=== PATIENT | female | born 1955 | race Caucasian/White ===

== ENCOUNTER → 2018-05-23 14:46 | Outpatient (CLI) | payer BC, SELFPAY ==
--- NOTE | 2018-05-23 14:51 | BI_ITS ---
MAMMOGRAPHY - BILATERAL SCREENING 3-D RACHAEL SYNTHESIS REASON FOR EXAM: Female, 62 years old. Bilateral Screening 3-D tomosynthesis PERTINENT HISTORY: No significant family history. TECHNIQUE: 2-D mammograms and 3-D Rachael synthesis of the breast (s) were performed. CAD was performed. COMPARISON: None. FINDINGS: The breast composition is heterogeneously dense that can obscure small breast masses. Scattered benign calcifications are seen. No dense spiculated masses or suspicious microcalcifications are identified. No architectural distortion is identified. There is no skin thickening or retraction. There has been no significant change since the prior study. BI/SCREENING MAMM (CAD), BILAT IMPRESSION: No mammographic signs of malignancy. Routine yearly mammograms recommended. ASSESSMENT CATEGORY: BIRADS Category 2: Benign. A letter regarding these results will be sent to the patient by the facility within 30 days. FOLLOW UP RECOMMENDATION: Yearly follow up mammogram recommended. (A) Approximately 10% of breast cancers are not detected by mammography. A normal mammogram should not delay biopsy of a clinically suspicious abnormality. Electronically Signed: Tavares Oreilly MD at 15:41 EDT , Service support ,
== END ==
PROVIDERS: Family Provider Family Medicine; PCP Family Medicine; Visit Provider Family Medicine
DX: Z12.31 Encounter for screening mammogram for malignant neoplasm of breast (principal)
CPT/HCPCS: 77063; 77067

== ENCOUNTER → 2021-01-13 16:42 | Outpatient (CLI) | payer OTHER, SELFPAY ==
--- NOTE | 2021-01-13 17:15 | MRI_ITS ---
ACR Level 3 findings have been noted. An addendum which confirms receipt of the report will follow. STUDY: MRI UPPER EXTREMITY RIGHT HUMERUS WITHOUT CONTRAST REASON FOR EXAM: Right shoulder/mid humeral pain, limited range of motion, right shoulder injury 2 weeks ago. TECHNIQUE: Standardized fat and water weighted pulse sequences were obtained in all 3 orthogonal planes. COMPARISON: None. FINDINGS: Normal subcutis adipose space. There is no demonstrated solid, cystic, or lipomatous mass within the subcutaneous adipose space. Normal visualized muscles and fascia. There is mild tendinosis of the intracapsular long biceps tendon demonstrated on the MRI shoulder images obtained the same day without demonstrated tear of the long biceps tendon. The distal biceps tendon is not included in the [id number]. Normal visualized neurovascular bundles. Normal visualized humerus. There is thickening of the visualized right breast parenchyma (T1 axial images 18-21; inversion recovery coronal images 18-21), further evaluation with mammography should be considered. MRI/Upper Ext/No Jt/ wo IMPRESSION: Mild tendinosis of the long biceps tendon without demonstrated tear of the long biceps tendon. No demonstrated biceps muscle strain. Thickening of the visualized right breast parenchyma, further evaluation with mammography should be considered. Electronically Signed: Darron Lopez MD at 8:59 EDT Tel , Service support ,
--- NOTE | 2021-01-13 17:15 | MRI_ITS ---
STUDY: MRI RIGHT SHOULDER REASON FOR EXAM: Right shoulder/mid humeral pain, limited range of motion, right shoulder injury 2 weeks ago. TECHNIQUE: Standardized fat and water weighted pulse sequences were obtained in all 3 orthogonal planes. COMPARISON: None. FINDINGS: There is a full-thickness tear of the supraspinatus tendon extending into the anterior infraspinatus tendon retracted approximately 2.8 cm (T2 coronal images 7-13). Normal subscapularis tendon. Normal teres minor tendon. There is mild atrophy with mild partial fat replacement of the supraspinatus and infraspinatus muscles (T2 sagittal images 1-3). Normal subscapularis muscle. Normal teres minor muscle. There is a glenohumeral joint effusion with fluid extending into the bicipital tendon sheath. There is mild superior migration of the humeral head secondary to the retracted rotator cuff tear. There is a small cyst in the posterior aspect of the greater tuberosity. Normal biceps labral complex. There is mild tendinosis of the intracapsular long biceps tendon (T2 coronal images 13, 14) without focal discontinuity of the tendon. Normal labrum. Normal capsulo- ligamentous complex. There is acromioclavicular arthrosis with capsular thickening (T2 sagittal image 9). There is a Type II morphology (curved), with a neutral orientation. There is subacromial-subdeltoid bursal fluid. Normal visualized coracohumeral and coracoacromial ligaments. Normal deltoid muscle. Normal trapezius muscle. MRI/Upper Ext Joint Only(Routine) IMPRESSION: Full-thickness tear of the supraspinatus tendon extending into the anterior infraspinatus tendon. Mild atrophy of the supraspinatus and infraspinatus muscles. Mild tendinosis of the long biceps tendon without demonstrated tear of the long biceps tendon. Acromioclavicular arthrosis. Glenohumeral joint fluid communicating with the subacromial-subdeltoid bursa. Electronically Signed: Darron Lopez MD at 8:59 EDT Tel , Service support ,
== END ==
PROVIDERS: PCP Family Medicine; Referring Provider Family Medicine; Visit Provider Family Medicine
DX: S43.401A Unspecified sprain of right shoulder joint, initial encounter (principal)
CPT/HCPCS: 73218; 73221

== ENCOUNTER → 2021-01-26 08:49 | Outpatient (CLI) | payer MEDICARE, OTHER, SELFPAY ==
[2021-01-25 09:21] VITALS: BMI 28.4
--- NOTE | 2021-01-26 08:55 | BI_ITS ---
MAMMOGRAPHY - BILATERAL DIAGNOSTIC REASON FOR EXAM: Female, 65 years old. Thickening of right breast parenchyma on recent MRI of the right upper extremity. PERTINENT HISTORY: Non-contributory. TECHNIQUE: Digital bilateral breast david (3D mammographic acquisition) in the CC and MLO projections. 2-D mediolateral oblique (MLO) and craniocaudad (CC) views of both breasts were obtained. CAD: Full Field Digital Mammography with Computer Added Detection was performed. COMPARISON: Comparison is made with prior study dated 05/23/2018 and 09/12/2016. FINDINGS: Breast Composition: The breasts are heterogeneously dense, which may obscure small masses. There are no dominant masses or suspicious calcifications. No other significant abnormalities are identified. There has been no significant change since the prior study. BI/DIAG MAMM W/CAD, BILAT IMPRESSION: Stable bilateral diagnostic mammogram. With a history of a thickness of the right breast, correlation with ultrasound of the right breast is recommended. ASSESSMENT CATEGORY: BIRADS Category 0: Incomplete. Need additional imaging evaluation. A letter regarding these results will be sent to the patient by the facility within 30 days. Approximately 10% of breast cancers are not detected by mammography. A normal mammogram should not delay biopsy of a clinically suspicious abnormality. Electronically Signed: Vicente Márquez MD at 10:10 EDT , Service support ,
--- NOTE | 2021-01-26 10:00 | US_ITS ---
STUDY: ULTRASOUND BREAST - RIGHT REASON FOR EXAM: Female, 65 years old. Abnormal MRI scan. TECHNIQUE: Axial and longitudinal images of the RIGHT breast were performed with a high resolution ultrasound transducer. # OF IMAGES: 34 COMPARISON: Comparison is made with prior mammogram done earlier today. FINDINGS: RIGHT Breast: The inferior medial aspect of the right breast was examined by ultrasound. There is homogeneous fibroglandular tissue. Mildly dilated retroareolar ducts. US/Breast Limited Unilateral IMPRESSION: Mildly dilated retroareolar ducts. ASSESSMENT CATEGORY: BIRADS Category 2: Benign. A letter regarding these results will be sent to the patient by the facility within 30 days. Electronically Signed: Vicente Márquez MD at 14:14 EDT , Service support ,
== END ==
PROVIDERS: PCP Family Medicine; Referring Provider Family Medicine; Visit Provider Family Medicine
DX: R92.8 Other abnormal and inconclusive findings on diagnostic imaging of breast (principal)
CPT/HCPCS: 76642; 77062; 77066; G0279

== ENCOUNTER → 2021-10-07 17:42 | Outpatient (CLI) | payer MEDICARE, SELFPAY | PROVIDERS: PCP Family Medicine; Referring Provider Nurse Practitioner Family; Visit Provider Nurse Practitioner Family | DX: U07.1 COVID-19 (principal) | CPT/HCPCS: 87633; 87635; U0005; U0003 ==

== ENCOUNTER → 2023-09-22 | Outpatient (CLI) | payer MEDICARE, OTHER, SELFPAY ==
--- NOTE | 2023-09-22 16:58 | RAD_ITS ---
STUDY: X-RAY CHEST REASON FOR EXAM: Female, 67 years old. hiatal hernia, cough TECHNIQUE: Frontal and lateral views of the chest. COMPARISON: 11/04/2015. FINDINGS: The lungs are clear and expanded. There is no demonstrated pleural abnormality. Normal size heart. Normal mediastinum and cristo. Normal visualized pulmonary arteries. Normal visualized aortic arch and descending thoracic aorta. Normal visualized thoracic spine. Normal visualized ribs, clavicles, and shoulders. There is no demonstrated abnormality of the visualized soft tissue structures of the upper abdomen. RAD/Chest PA and Lateral IMPRESSION: Normal x-ray examination of the chest. Electronically Signed: Gilberto Landaverde MD at 22:13 EST ,
== END | disposition home or self-care (01) ==
PROVIDERS: PCP Family Medicine; Referring Provider Family Medicine; Visit Provider Family Medicine
DX: K44.9 Diaphragmatic hernia without obstruction or gangrene (principal); R05.9 Cough, unspecified
CPT/HCPCS: 71046

== ENCOUNTER → 2023-10-03 | Outpatient (CLI) | payer MEDICARE, OTHER, SELFPAY ==
--- NOTE | 2023-10-03 08:09 | RAD_ITS ---
STUDY: X-RAY - ESOPHAGUS (BARIUM SWALLOW) WITH FLUOROSCOPY REASON FOR EXAM: Female, 67 years old. Dysphagia 12 mm tablet only TECHNIQUE: 22 view(s) of the esophagus were obtained following swallowing of barium. FLUOROSCOPY TIME (if supplied): (43 seconds) minutes/seconds. 25.69 mGy COMPARISON: None. FINDINGS: There is no demonstrated esophageal foreign body. There is no demonstrated stricture or mucosal abnormality. Large hiatal hernia with gastroesophageal reflux. The patient ingested a 12 mm tablet of barium. The tablet is trapped within the hernia. There is atherosclerotic calcification of the aortic arch with tortuosity of the descending aorta. Normal visualized pulmonary parenchyma. Normal visualized osseous structures of the thorax. RAD/Esophagus Single Contrast IMPRESSION: Large hiatal hernia with gastroesophageal reflux. The ingested 12 mm tablet is trapped within the hernia. Electronically Signed: Vicente Márquez MD at 9:59 EST ,
== END | disposition home or self-care (01) ==
LOC: RAD 08:02
PROVIDERS: PCP Family Medicine; Referring Provider Family Medicine; Visit Provider Family Medicine
DX: R13.10 Dysphagia, unspecified (principal)
CPT/HCPCS: 74220

== ENCOUNTER 2023-12-04 06:29 | Day surgery (SDC) | payer MEDICARE, OTHER, SELFPAY ==
[2023-12-04] VITALS (8 sets, daily range): BP systolic 86–141; BP diastolic 51–119; PULSE 82–97; RESP 16–18; TEMP 36.3; O2SAT 91–98; BMI 31.6
--- NOTE | 2023-12-04 06:33 | HP.PCM_ITS ---
History and Physical Date of Admission: 12/04/23 Visit Reasons: HIATAL HERNIA Allergies adhesive Allergy (Mild, Verified 11/01/23 08:48) Rashcefaclor [From Ceclor] Allergy (Verified 01/25/21 09:37) Hives, Itchingcholestyramine Allergy (Verified 01/25/21 09:37) constipation, itching, nausea, vomitinglatex Allergy (Verified 01/25/21 09:37) Rash, blisters, itchingPenicillins Allergy (Verified 01/25/21 09:37) Fainting, Hives, Itchingpregabalin [From Lyrica] Allergy (Verified 01/25/21 09:37) Nauseasulfamethoxazole [From Bactrim] Allergy (Verified 01/25/21 09:37) Dizziness, itching, rashtrimethoprim [From Bactrim] Allergy (Verified 01/25/21 09:37) Dizziness, itching, rashacetaminophen [From Vicodin] Adverse Reaction (Verified 01/25/21 09:37) Disoriented, lightheadedaspirin [From Percodan] Adverse Reaction (Verified 01/25/21 09:37) n/v, dizzinesscelecoxib [From Celebrex] Adverse Reaction (Verified 01/25/21 09:37) Nauseadoxycycline Adverse Reaction (Verified 01/25/21 09:37) nausea, diarrheaetodolac Adverse Reaction (Verified 08/17/22 17:13) MAKES HER SPACEY fluoxetine [From Prozac] Adverse Reaction (Verified 01/25/21 09:37) Weight gainGadolinium-MRI Contrast Medium Adverse Reaction (Verified 01/25/21 09:37) lightheaded, couldn't walkhydrocodone [From Vicodin] Adverse Reaction (Verified 01/25/21 09:37) Disoriented, lightheadedlevofloxacin [From Levaquin] Adverse Reaction (Verified 01/25/21 09:37) muscle stiffness, insomnia, painoxycodone [From Percodan] Adverse Reaction (Verified 01/25/21 09:37) n/v, dizziness Medications pantoprazole 40 mg tablet,delayed release mg PO 11/01/23 [History Confirmed 11/01/23] FOR[facility]LY [facility], [facility] Medical History (Updated 11/01/23 @ 08:45 by Dayami Jay) Arthritis Carpal tunnel syndrome GERD (gastroesophageal reflux disease) Large hiatal hernia Rotator cuff tear Surgical History (Updated 01/25/21 @ 09:24 by Trinidad Rodriguez) H/O rotator cuff surgery History of cholecystectomy History of repair of hiatal hernia S/P cervical spinal fusion Family History (Updated 01/25/21 @ 09:26 by Trinidad Rodriguez) Grandmother CancerFather Hypertension ArthritisMother Lupus ArthritisUncle DiabetesGrandmother Cancer Social History (Updated 01/25/21 @ 11:[address] Timmy Nickerson, DO) household members: spouse, children and other details: grandchildren housing: house number of children: 2 current occupational status: employed Smoking Status: Never smoker alcohol intake: never what type of physical activity do you participate in: none do you feel safe at home: Yes HPI HPI HPI: 67-year-old female is being referred by Dr. Nita Botello for surgical consultation regarding a large hiatal hernia and a written compromise surgical consult recommendations will return to her. The patient presented with concerns of acid reflux disease with minimal relief with Gas-X. Worse in the evening and morning. On September 22, 2023 at the [facility] she had a chest x-ray obtained which was said to be normal. On my review however it is clearly abnormal with a air-fluid level seen in the mediastinum consistent with a hiatal hernia. I have reviewed these images as well as images of a barium swallow that was performed at the [facility] on October 03, 2023. This demonstrates a large hiatal hernia. There is felt to be a 12 mm barium tablet trapped within the hernia. I concur with the images. It is pertinent that the patient's had a previous history of a cholecystectomy in the past and a hiatal hernia repair August 2015. The patient states that August 2015 because of epigastric pain she had been put through a bunch of tests. Apparently ball shagger Dr. Timmy Dias was responsible for some of those. Was then decided that she had a malfunctioning gallbladder so she had a laparoscopic cholecystectomy. She states that at that time they noted her hiatal hernia . She complained of reflux heartburn and trouble breathing and coughing. She was then referred by Dr. Dias to [facility]. She states that because of chest pain she was kept overnight. Apparently then she continued to have coughing afterwards and according to her evaluation detected a right sided effusion and pneumonia. She thinks that she coughed so hard that things immediately broke down at that point. Currently she is complaining of food getting stuck and shortness of breath particularly when she tries to bend over. She feels like she is the same symptoms as when she originally had her hiatal hernia. ROS General General: No weight change, appetite, fatigue, colon cancer, breast cancer or weakness HEENT HEENT: No difficulty swallowing, eye injury, eye surgery, swollen glands or hoarseness Endo Endocrine: No thyroid disease, diabetes mellitus, thyroid cancer, Hair loss, heat intolerance or cold intolerance Skin Skin: No rash or changing moles Breast Breast: No left breast lump, right breast lump, nipple discharge, breast pain, abnormal mammogram, abnormal US or breast enlargement Musc Musculoskeletal: Yes arthritis; No back problems, rheumatoid arthritis, gout or joint pain Cardio Cardiovascular: No murmur, pacemaker, heart disease, atrial fibrillation, high blood pressure, heart attack, heart stent, palpitations, shortness of breat with exertion or chest pain Psych Psychiatric: No depression, anxiety or hearing voices Resp Respiratory: Yes shortness of breath, No sleep apnea, No cough, Yes COPD, No asthma, No emphysema and No wheezing Gastro Gastrointestinal: No abdominal pain, No nausea or vomiting, No diarrhea, No constipation, No blood in stool, Yes acid reflux, Yes hemorrhoids, No ulcers, No gallbladder problem and No black,tarry stools Xander Hematologic: No blood thinners, No blood disorders, No bleeding, No anemia and No blood clots Neuro Neurologic: No system reviewed and no additional complaints, except as documented, No as per HPI, No abnormal gait, No abnormal hearing, No abnormal movements, No abnormal speech, No behavioral changes, No burning sensations, No confusion, No convulsions, No disequilibrium, No dizziness, No localized weakness, No frequent falls, No headache(s), No lack of coordination, No loss of vision, No memory loss, No numbness, No other visual disturbances, No radicular pain, No restless legs, No sensory deficit, No syncope, No tingling, No tremor(s), No weakness and No other Exam Const General: cooperative, comfortable and no acute distress Nutritional Appearance: average body habitus [facility] Head: normal to inspection Eyes General: appearance normal, both eyes and all related structures Neck Neck: normal visual inspection Chest Chest palpation & inspection: normal inspection of the chest Resp Effort & Inspection: normal respiratory effort Auscultation: clear to auscultation bilaterally Cardio Rate: regular rate Rhythm: regular rhythm GI Inspection: normal to inspection Palpation: soft and no hepatosplenomegaly Auscultation: normal bowel sounds Musc Cervical Spine: normal cervical lordosis Skin General: no rashes or lesions noted Neuro General: patient alert, patient awake and patient oriented x3 Extrem General: no calf tenderness Psych Appearance: grossly normal Assessment and Plan Assessment and Plan (1) Large hiatal hernia: Status: Acute Plan: 67-year-old female with recurrent hiatal hernia and likely slipped repair. From her explanation it may be that the right pleura was opened at the time of surgery. She clearly now has a significant amount of her stomach within the mediastinum. Her cough and shortness of breath seem to be well related to this recurrent hernia. I do recommend to the patient that she pursue ongoing investigation and will likely need definitive treatment. I will be able to expedite the esophagogastroduodenoscopy for her careful inspection of the length the esophagus inspection for possible recurrent reflux disease and biopsy sampling were indicated as well as photo imaging. Regarding the complexity of her recurrent repair I am recommending that she allow us to refer her to Dr. Nikhil Allison at [facility]. I believe that she will have increased complexity to this problem. She has had an opportunity to ask and have questions answered. She is interested in pursuing investigation. It is of note that Dr. Botello did place her on pantoprazole which has helped with some of the heartburn symptoms. I appreciate the opportunity of assisting with her surgical care. Copy: Dr Nita Fernandes M.D., F.A.C.S. I have examined the patient and the H&P has been reviewed. There are no clinical changes since date of exam. Silver Fernandes M.D., F.A.C.S.
--- OUTSIDE RECORDS SUMMARY | 2023-12-04 06:33 | XMS RPT_ITS | CCD ---
Author Name Unknown Address [address] [place] [address] Organization [facility] Care Team Providers Care Steel Pickler Name Role Phone Francisco J SWENSON, Jordan Melchor Unavailable [phone] Allergies Allergy Classification Reported Allergen(s) Allergy Type Date of Onset Reaction(s) Facility (1 source) Acetaminophen / HYDROcodone Drug Allergy 02-03-20 17 *analgesics* disoriented, light headed [facility] Work Phone: (1 source) Aspirin / oxyCODONE Drug Allergy 02-03-20 17 nausea, dizzy & vomiting [facility] Work Phone: (1 source) Cefaclor Drug Allergy 02-03-20 17 hives and itching [facility] Work Phone: (1 source) celecoxib Drug Allergy 02-03-20 17 *analgesic-ant i-inflammatory * Nausea [facility] Work Phone: (1 source) Cholestyramine Resin; Translations: [CHOLESTYRAMINE] Drug Allergy 02-14-20 17 constipation, itching. nausea, vomiting [facility] Work Phone: (1 source) Doxycycline Drug Allergy 02-03-20 17 *tetracyclines * throat swelling [facility] Work Phone: (1 source) Doxycycline Drug Allergy 02-03-20 17 diarrhea and nausea [facility] Work Phone: (1 source) Etodolac Drug Allergy 02-03-20 17 *analgesic anti-inflammat ory* makes spacey [facility] Work Phone: (1 source) FLUoxetine Drug Allergy 02-03-20 17 weight gain, she will not take it [facility] Work Phone: (1 source) Latex; Translations: [LATEX] allergy to substance 02-14-20 17 Rash blisters and itching [facility] Work Phone: (1 source) levoFLOXacin Drug Allergy 02-14-20 17 muscle stiffness, pain, insomnia [facility] Work Phone: (1 source) Penicillin G Drug Allergy 02-03-20 17 fainting, hives, itching [facility] Work Phone: (1 source) pork allergenic extract; Translations: [PORK] Drug Allergy 02-24-20 21 hives, throat swelling [facility] Work Phone: (1 source) pregabalin Drug Allergy 02-03-20 17 *anticonvulsan ts* Nausea [facility] Work Phone: (1 source) Seasonal allergy; Translations: [SEASONAL] allergy to substance 02-14-20 17 [facility] Work Phone: (1 source) Sulfamethoxazole / Trimethoprim Drug Allergy 02-03-20 17 dizziness, itching, rash [facility] Work Phone: (1 source) CT CONTRAST drug allergy 02-03-20 17 lightheaded and could not walk [facility] Work Phone: Medications Completed/Discontinued Medications Medication Drug Class(es) Dates Sig (Normalized) Sig (Original) Cholecalciferol (1 source) Vitamin D Start: 02-02-2017 take 1 capsule by mouth once daily SM VITAMIN D3 50 MCG (1999 UT) CAPS 1 capsule by mouth once a day cholecalciferol (vitamin d3) [id number] Poppy [facility]ouch AT 12 hr fexofenadine hydrochloride 60 mg / pseudoephedrine hydrochloride 120 mg extended release oral tablet (1 source) alpha-Adrenergic Agonist, Histamine-1 Receptor Antagonist Start: 02-13-2017 take 60-120 mg by mouth once daily AMBER-D ALLERGY [employer] CONGESTION 60-120 MG [id number] 1 by mouth once a day fexofenadine-pseudoe phedrine [id number] [facility]ppy [facility] AT Problems Active Problems Problem Classification Problem Date Documented Date Episodic/Chronic Osteoarthritis (1 source) Unilateral primary osteoarthritis of first carpometacarpal joint, left hand; Translations: [Osteoarthrosis, localized, primary, hand] Onset: 02-13-2017 02-13-2017 Chronic Past or Other Problems Problem Classification Problem Date Documented Date Episodic/Chronic Other connective tissue disease (1 source) Biceps tendinitis; Translations: [Bicipital tendinitis, right shoulder] Onset: 03-26-2021 03-26-2021 Episodic Other connective tissue disease (1 source) Disorder of rotator cuff; Translations: [Unspecified rotator cuff tear or rupture of right shoulder, not specified as traumatic] Onset: 02-23-2021 02-23-2021 Episodic Other connective tissue disease (1 source) Impingement syndrome of shoulder region; Translations: [Impingement syndrome of right shoulder] Onset: 02-23-2021 02-23-2021 Episodic Other connective tissue disease (1 source) Ganglion, left wrist; Translations: [Ganglion of joint] Onset: 02-13-2017 02-13-2017 Episodic Other connective tissue disease (1 source) Other synovitis and tenosynovitis, left forearm; Translations: [Other tenosynovitis of hand and wrist] Onset: 02-13-2017 02-13-2017 Episodic Other connective tissue disease (1 source) Other synovitis and tenosynovitis, left hand; Translations: [Other tenosynovitis of hand and wrist] Onset: 02-13-2017 02-13-2017 Episodic Other injuries and conditions due to external causes (1 source) Traumatic AND/OR non-traumatic injury; Translations: [Injury, unspecified, initial encounter] Onset: 02-23-2021 02-23-2021 Episodic Unclassified (1 source) Problem Results Test Name Value Interpretation Reference Range Facil ity Vital Signs Date Time Vital Sign Value Performing Clinician Facility NEGATED: Highlighted [id number] 11:02-0400 [facility] NEGATED: Highlighted [id number] 11:02-040 Body height 168 cm [facility] Work Phone: NEGATED: Highlighted [id number] 11:02-0400 Body mass index (BMI) [Ratio] 29.16 kg/m2 [facility] Work Phone: NEGATED: Highlighted [id number] 11:02-0400 Body weight 81.65 kg [facility] Work Phone: NEGATED: Highlighted [id number] 11:020400 Body weight 82 kg [facility] Work Phone: Procedures Date Procedure Procedure Detail Performing Clinician Start: 02-04-2022 End: 02-04-2022 BP scrn no perf at interval Jordan Marx MD Work Phone: Start: 02-04-2022 End: 02-04-2022 Calc BMI abv up karyn f/u Jordan Marx MD Work Phone: Start: 02-04-2022 End: 02-04-2022 Current tobacco non-user cad cap copd pv dm Jordan Marx MD Work Phone: Start: 02-04-2022 End: 02-04-2022 Docrev cur meds by [facility] clin Jordan Marx MD Work Phone: Start: 02-04-2022 End: 02-04-2022 Pain neg no plan Jordan Marx MD Work Phone: Start: 02-04-2022 End: 02-04-2022 Patient encounter procedure Jordan Marx MD Work Phone: NEGATED: Highlighted rowStart: 02-04-2022 End: 02-04-2022 Documentation of current medications Sheryl John aPul PATTON Plan of Treatment Date Care Activity Detail Author Start: 02-04-2022 End: 02-04-2022 Patient encounter procedure Appointment [facility] Work Phone: Social History Date Type Detail Facility Start: 02-04-2022 End: 02-04-2022 Assertion Unknown [facility]: Evaluation note Note Date & Type Note Facility Evaluation note There may be informa tion available, but it has not been provided by the sender. [facility] Work Phone: Instructions Note Date & Type Note Facility [facility] Work Phone: Chief Complaint Chief Complaint Description Start Date right shoulder post Right sh oulder scope with massive arthroscopic rotator cuff repair Rotium augmentation patch extensive glenohumeral debridement biceps tenodesis subacromial decompression. on 01/20/2022 Preliminary chief co mplaint data, not yet signed by the author as of Advance Directives There may be information available, but it has not been provided by the sender. Family History There may be information available, but it has not been provided by the sender. Additional Source Comments Reason for Visit (unrecogniz ed section and content) FOR RECORDS PERTAINING TO PATIENTS WHO ARE OR HAVE BEEN ENROLLED IN A CHEMICAL DEPENDENCY/SUBSTANCEABUSE PROGRAM, SOME INFORMATION MAY BE OMITTED. This clinical summary was aggregated from multiple sources. Caution should be exercised in using it in the provision of clinical care. This summary normalizes information from multiple sources, and as a consequence, information in this document may materially change the coding, format and clinical context of patient data. In addition, data may be omitted in some cases. CLINICAL DECISIONS SHOULD BE BASED ON THE PRIMARY CLINICAL RECORDS. [employer] provides no warranty or guarantee of the accuracy or completeness of information in this document.
[2023-12-04] MEDS: Lactated Ringers 1,000 ML 15 ML IV (07:05)
--- NOTE | 2023-12-04 07:30 | EGD_PTH ---
PATHOLOGY RESULTS PATIENT: LADONNA BROWN LOC: EN U#:[id number] AGE/SX: 68/F ROOM: RE12/04/[address]: Dr. Silver Fernandes MD : 1955 BED: DIS: 12/04/2023 SPEC #: [id number] RECD: 12/04/23 10:57 STATUS: VEE LANEJose A #: [id number] SABRINA: 12/04/23 07:[address]: Silver Fernandes DEPT: SURGICAL PATHOLOGY RECD BY: Jeniffer Justice ENTERED: 12/04/23 10:59 SP TYPE: EGD BIOPSY OTHR DR: Dr. Nita Botello MD Tissues: Gastric mucous membrane Gastric mucous membrane Stomach, NOS Esophagus, NOS Esophageal mucous membrane Procedures: Surgery Specimen Level IV HEADER OPERATION: EGD with biopsies PRE-OP DIAGNOSIS: Large hiatal hernia TISSUE SUBMITTED: A - Antral biopsy for H. pylori and path, B - Greater curvature polyp biopsy, C - Proximal stomach slip through previous hiatal hernia repair biopsy, D - EG junction biopsy, E - Mid esophagus biopsy MICROSCOPIC DIAGNOSIS A. Antrum, biopsy: Mild gastritis. See microscopic description and comment. B. Greater curvature polyp, biopsy: Fundic gland polyp. C. Proximal stomach slip through previous hiatal hernia repair, biopsy: Fragments of gastric mucosa with focal erosion, congestion, acute and chronic inflammation and reactive epithelial changes. D. EG junction, biopsy: A fragment of benign squamous epithelium. E. Mid esophagus, biopsy: A fragment of benign squamous mucosa. SJ:rhoda 12/05/2023 COMMENT A. The results of immunohistochemistry for Helicobacter pylori will be reported separately ([id number]). MICROSCOPIC DESCRIPTION Slides are reviewed. A. The specimen shows fragments of gastric mucosa with chronic inflammatory cell infiltrates in the lamina propria consisting of lymphocytes and plasma cells, consistent with mild chronic gastritis. GROSS DESCRIPTION A - Received in fixative is one container labeled with the patient's name and designated antral biopsy. The specimen consists of one irregular fragment of light butler soft tissue that measures 0.4 x 0.4 x 0.1 cm. The specimen is totally submitted in one cassette. B - Received in fixative is one container labeled with the patient's name and designated greater curvature polyp biopsy. The specimen consists of one irregular fragment of light butler soft tissue that measures 0.4 x 0.3 x 0.1 cm. The specimen is totally submitted in one cassette. C - Received in fixative is one container labeled with the patient's name and designated proximal stomach. The specimen consists of two irregular fragments of light butler soft tissue that in aggregate measure 0.3 x 0.3 x 0.1 cm. The specimen is totally submitted in one cassette. D - Received in fixative is one container labeled with the patient's name and designated EG junction biopsy. The specimen consists of one irregular fragment of light butler soft tissue that measures 0.3 x 0.3 x 0.1 cm. The specimen is totally submitted in one cassette. E - Received in fixative is one container labeled with the patient's name and designated mid esophagus biopsy. The specimen consists of one irregular fragment of light butler soft tissue that measures 0.6 x 0.3 x 0.1 cm. The specimen is totally submitted in one cassette. / SJ:rg 12/04/2023 TC:3 CPT: 59864 x5
--- NOTE | 2023-12-04 07:30 | IMM_PTH ---
PATHOLOGY RESULTS PATIENT: LADONNA BROWN LOC: EN U#:[id number] AGE/SX: 68/F ROOM: RE12/04/[address]: Dr. Silver Fernandes MD : 1955 BED: DIS: 12/04/2023 SPEC #: [id number] RECD: 12/04/23 13:35 STATUS: VEE REJose A #: [id number] SABRINA: 12/04/23 07:[address]: Silver Fernandes DEPT: IMMUNOHISTOCHEMISTRY RECD BY: Concepcion Motley ENTERED: 12/04/23 13:35 SP TYPE: IMMUNO OTHR DR: Dr. Nita Botello MD Tissues: Stomach, NOS Procedures: H Pylori (initial) PHYSICIAN & INSTITUTION [place] [address] SPECIMEN INFORMATION: Tissue Source: A - Antral biopsy Clinical Info: Large hiatal hernia Specimen Number: [id number] CPT code: 46483 METHODOLOGY: Deparaffinized sections of prefer/formalin-fixed tissue or PAP/DQ stained slides are incubated with monoclonal/polyclonal antibodies/oligonucleotide probes. Localization is made via biotin free immunoperoxidase method. Appropriate controls are performed and reacted as expected. Results on target cell population are indicated in the following table: RESULTS: ANTIBODY / CLONE RESULT Block A H Pylori (polyclonal) negative These tests were developed and their performance characteristics determined by [facility]. They may not have been cleared or approved by the U.S. Food and Drug Administration. The FDA has determined that such clearance or approval is not necessary. The above immunohistochemical/dualISH markers are ordered and reviewed by the Pathologist. INTERPRETATION: A. Antral biopsy: Negative for Helicobacter pylori organisms. SJ:rhoda 12/05/2023
--- NOTE | 2023-12-04 07:42 | OP.EGD_ITS ---
Patient Name: Chelle Quiroz Procedure Date: 12/04/2023 7:15 AM Date of : 1955 Age: 68 Procedure: Upper GI endoscopy Indications: Reflux esophagitis Providers: Silver Fernandes MD Referring MD: Nita Botello Medicines: See the Anesthesia note for documentation of the administered medications Complications: No immediate complications. Procedure: Pre-Anesthesia Assessment: - Prior to the procedure, a History and Physical was performed, and patient medications and allergies were reviewed. The patient's tolerance of previous anesthesia was also reviewed. The risks and benefits of the procedure and the sedation options and risks were discussed with the patient. All questions were answered, and informed consent was obtained. Prior Anticoagulants: The patient has taken no anticoagulant or antiplatelet agents. ASA Grade Assessment: II - A patient with mild systemic disease. After reviewing the risks and benefits, the patient was deemed in satisfactory condition to undergo the procedure. After obtaining informed consent, the endoscope was passed under direct vision. Throughout the procedure, the patient's blood pressure, pulse, and oxygen saturations were monitored continuously. The gastroscope was introduced through the mouth, and advanced to the second part of duodenum. The upper GI endoscopy was accomplished without difficulty. The patient tolerated the procedure well. Scope In: 7:21:17 AM Scope Out: 7:29:26 AM Total Procedure Duration Time 0 hours 8 minutes 9 seconds Findings: The Z-line was irregular and was found 34 cm from the incisors. Biopsies were taken with a cold forceps for histology. A large hiatal hernia was present. Biopsies were taken with a cold forceps for histology. Multiple sessile polyps with no stigmata of recent bleeding were found on the greater curvature of the stomach. The polyp was removed with a cold biopsy forceps. Resection and retrieval were complete. Diffuse mildly erythematous mucosa without bleeding was found in the gastric antrum. Biopsies were taken with a cold forceps for histology. The examined duodenum was normal. A medium amount of food (residue) was found in the cardia and in the gastric body. Impression: - Z-line irregular, 34 cm from the incisors. Biopsied. - Large hiatal hernia. Biopsied. - Multiple gastric polyps. Resected and retrieved. - Erythematous mucosa in the antrum. Biopsied. - Normal examined duodenum. - A medium amount of food (residue) in the stomach. Recommendation: - Discharge patient to home. - Resume previous diet. - Continue present medications. - Telephone my office for pathology results in 1 week. - Refer to a surgeon in 4 weeks. The patient appears to have a slipped fundoplication with a large recurrent hiatal hernia. There is irritation within the hiatal hernia with retained food both within the recurrent hernia location as well as in the subdiaphragmatic body of the stomach. A referral has been made to Dr. Nikhil Allison for tertiary level consultation. Procedure Code(s): --- Professional --- 63624, Esophagogastroduodenoscopy, flexible, transoral; with biopsy, single or multiple Diagnosis Code(s): --- Professional --- K22.89, Other specified disease of esophagus K44.9, Diaphragmatic hernia without obstruction or gangrene K31.7, Polyp of stomach and duodenum K31.89, Other diseases of stomach and duodenum K21.00, Gastro-esophageal reflux disease with esophagitis, without bleeding CPT copyright 2021 [employer]. All rights reserved. The codes documented in this report are preliminary and upon block stacker review may be revised to meet current compliance requirements. Silver Fernandes MD 12/04/2023 7:42:12 AM This report has been signed electronically. Number of Addenda: 0 Note Initiated On: 12/04/2023 7:15 AM
--- NOTE | 2023-12-04 07:43 | OP.CCLET_ITS ---
12/04/2023 Yordy Boo Re : Upper GI endoscopy procedure for Chelle Quiroz Dear Rajeev This procedure was performed on Monday, December 04, 2023. My impressions and recommendations are as follows: Impressions : - Z-line irregular, 34 cm from the incisors. Biopsied. - Large hiatal hernia. Biopsied. - Multiple gastric polyps. Resected and retrieved. - Erythematous mucosa in the antrum. Biopsied. - Normal examined duodenum. - A medium amount of food (residue) in the stomach. Recommendations : - Discharge patient to home. - Resume previous diet. - Continue present medications. - Telephone my office for pathology results in 1 week. - Refer to a surgeon in 4 weeks. The patient appears to have a slipped fundoplication with a large recurrent hiatal hernia. There is irritation within the hiatal hernia with retained food both within the recurrent hernia location as well as in the subdiaphragmatic body of the stomach. A referral has been made to Dr. Nikhil Allison for tertiary level consultation. My findings are described in the full procedure note, which is enclosed. If I can be of further assistance, please feel free to contact me at Doctor phone number(s): Work: . Sincerely, Silver Fernandes MD 12/04/2023 7:42:12 AM This report has been signed electronically.
== END 2023-12-04 08:33 | disposition home or self-care (01) ==
LOC: EN 06:31 → AC 06:32
PROVIDERS: PCP Family Medicine; Referring Provider Family Medicine; Visit Provider Surgery
PROC: 0DJ08ZZ Inspection of Upper Intestinal Tract, Via Natural or Artificial Opening Endoscopic (ICD-10-PCS; CPT 43235; principal; 2023-12-04 07:25)
DX: K29.70 Gastritis, unspecified, without bleeding (principal); K44.9 Diaphragmatic hernia without obstruction or gangrene; K21.00 Gastro-esophageal reflux disease with esophagitis, without bleeding; K31.7 Polyp of stomach and duodenum; K31.89 Other diseases of stomach and duodenum
CPT/HCPCS: 43239; 88305; 88342; J7120; J2405

== ENCOUNTER → 2023-12-14 | Outpatient (CLI) | payer MEDICARE, OTHER, SELFPAY ==
--- NOTE | 2023-12-14 08:20 | NM_ITS ---
CLINICAL: 68-year-old female with history of clinical gastroparesis. SEMI-SOLID PHASE 99m Tc SULFUR COLLOID GASTRIC EMPTYING STUDY COMPARISON: None available FINDINGS: The patient was administered 1.2 mCi of 99m Tc sulfur colloid mixed with oatmeal and consumed per os. Image acquisitions in the anterior-posterior projections were obtained for 60 minutes. There is prompt visualization of the stomach. There is no gastroesophageal reflux identified. The T ? raw data emptying was un-calculable, (Normal: 12-56 minutes). NM/Gastric Emptying Study IMPRESSION: 1. ABNORMAL 99m Tc sulfur colloid semi-solid phase (oatmeal) gastric emptying imaging examination. A. There is delayed semi-solid phase gastric emptying compared to normal controls. (Gopi et al, J Nucl Med Tech 38: 186, 2010). Electronically Signed: Saúl Edwards DO at 23:14 EST ,
--- OUTSIDE RECORDS SUMMARY | 2023-12-14 08:31 | XMS RPT_ITS | CCD ---
Author Name Unknown Address [address] [place] [address] Organization [facility] Care Team Providers Care Research Manager Name Role Phone Francisco J SWENSON, Jordan Melchor Unavailable Allergies Allergy Classification Reported Allergen(s) Allergy Type Date of Onset Reaction(s) Facility (1 source) Acetaminophen / HYDROcodone Drug Allergy 02-03-20 17 *analgesics* disoriented, light headed [facility] Work Phone: (1 source) Aspirin / oxyCODONE Drug Allergy 02-03-20 17 nausea, dizzy & vomiting [facility] Work Phone: (1 source) Cefaclor Drug Allergy 02-03-20 17 hives and itching [facility] Work Phone: (1 source) celecoxib Drug Allergy 02-03-20 17 *analgesic-ant i-inflammatory * Nausea [facility] Work Phone: (1 source) Cholestyramine Resin; Translations: [CHOLESTYRAMINE] Drug Allergy 02-14-20 17 constipation, itching. nausea, vomiting [facility] Work Phone: (1 source) Doxycycline Drug Allergy 02-03-20 17 *tetracyclines * throat swelling [facility] Work Phone: (1 source) Doxycycline Drug Allergy 02-03-20 17 diarrhea and nausea [facility] Work Phone: (1 source) Etodolac Drug Allergy 02-03-20 17 *analgesic anti-inflammat ory* makes spacey [facility] Work Phone: (1 source) FLUoxetine Drug Allergy 02-03-20 17 weight gain, she will not take it [facility] Work Phone: (1 source) Latex; Translations: [LATEX] allergy to substance 02-14-20 17 Rash blisters and itching [facility] Work Phone: (1 source) levoFLOXacin Drug Allergy 02-14-20 17 muscle stiffness, pain, insomnia [facility] Work Phone: (1 source) Penicillin G Drug Allergy 02-03-20 17 fainting, hives, itching [facility] Work Phone: (1 source) pork allergenic extract; Translations: [PORK] Drug Allergy 02-24-20 21 hives, throat swelling [facility] Work Phone: (1 source) pregabalin Drug Allergy 02-03-20 17 *anticonvulsan ts* Nausea [facility] Work Phone: (1 source) Seasonal allergy; Translations: [SEASONAL] allergy to substance 02-14-20 17 [facility] Work Phone: (1 source) Sulfamethoxazole / Trimethoprim Drug Allergy 02-03-20 17 dizziness, itching, rash [facility] Work Phone: (1 source) CT CONTRAST drug allergy 02-03-20 17 lightheaded and could not walk [facility] Work Phone: Medications Completed/Discontinued Medications Medication Drug Class(es) Dates Sig (Normalized) Sig (Original) Cholecalciferol (1 source) Vitamin D Start: 02-02-2017 take 1 capsule by mouth once daily SM VITAMIN D3 50 MCG (1999 UT) CAPS 1 capsule by mouth once a day cholecalciferol (vitamin d3) [id number] Poppy Couch AT 12 hr fexofenadine hydrochloride 60 mg / pseudoephedrine hydrochloride 120 mg extended release oral tablet (1 source) alpha-Adrenergic Agonist, Histamine-1 Receptor Antagonist Start: 02-13-2017 take 60-120 mg by mouth once daily [facility] 60-120 MG [id number] 1 by mouth once a day fexofenadine-pseudoe phedrine [id number] Poppy Couch AT Problems Active Problems Problem [...] Sign Value Performing Clinician Facility NEGATED: Highlighted [id number] 11:02-0400 [facility] NEGATED: Highlighted [id number] 11:02-040 Body height 168 cm [facility] Work Phone: NEGATED: Highlighted [id number] 11:02-0400 Body mass index (BMI) [Ratio] 29.16 kg/m2 [facility] Work Phone: NEGATED: Highlighted [id number] 11:02-0400 Body weight 81.65 kg [facility] Work Phone: NEGATED: Highlighted [id number] 11:020400 Body weight 82 kg [facility] Work Phone: Procedures Date Procedure Procedure Detail [...] 02-04-2022 Documentation of current medications Sheryl John Paul PATTON Plan of Treatment Date Care Activity Detail Author Start: 02-04-2022 End: 02-04-2022 Patient encounter procedure Appointment [facility] Work Phone: Social History Date Type Detail Facility Start: 02-04-2022 End: 02-04-2022 Assertion Unknown if ever smoked [facility] Work [facility]: Evaluation note Note Date & Type Note Facility Evaluation note There may be informa tion available, but it has not been provided by the sender. [facility] Work Phone: Instructions Note Date & Type Note Facility [facility] Work Phone: Chief Complaint Chief Complaint Description [...] BE BASED ON THE PRIMARY CLINICAL RECORDS. [email or web address] provides no warranty or guarantee of the accuracy or completeness of information in this document.
== END | disposition home or self-care (01) ==
PROVIDERS: PCP Family Medicine; Referring Provider Surgery; Visit Provider Surgery
DX: K31.84 Gastroparesis (principal)
CPT/HCPCS: 78264; A9541

== ENCOUNTER → 2025-07-29 | Outpatient (CLI) | payer MEDICARE, OTHER, SELFPAY ==
--- NOTE | 2025-07-29 12:56 | RAD_ITS ---
PROCEDURE: FINGER(S) MIN 2 VIEWS 07/29/2025 REASON FOR EXAM: L 5TH FINGER TECHNIQUE: Procedure Code: RADFIN Modality: DX Procedure: Three-view left 5th finger. COMPARISON: None. RAD/Finger(s) Min 2 Views IMPRESSION: Moderately severe arthritic changes of the left 5th proximal and distal interph alangeal joints noted, with marked joint narrowing, cortical irregularity, osteophytosis. 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 No acute fracture or dislocation is seen. Reading Location: [id number]
--- NOTE | 2025-07-29 12:56 | RAD_ITS ---
PROCEDURE: FINGER(S) MIN 2 VIEWS 07/29/2025 REASON FOR EXAM: L 5TH FINGER TECHNIQUE: Procedure Code: RADFIN Modality: DX Procedure: Three-view left 5th finger. COMPARISON: None. RAD/Finger(s) Min 2 Views IMPRESSION: Moderately severe arthritic changes of the left 5th proximal and distal interph alangeal joints noted, with marked joint narrowing, cortical irregularity, osteophytosis. 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 No acute fracture or dislocation is seen. Reading Location: [id number]
[2025-07-29 15:41] LABS: Hematocrit 45.9 % (37-47); Hemoglobin 14.9 g/dL (12.0-15.0); Mean Corp Hgb Conc 32.5 g/dL (32-36); Mean Corpuscular Volume 91.3 fL (81-99); Mean Platelet Vol. 11.4 fl (6.2-12.0); Platelet Count 267 K/mm3 (150-450); RBC Distribution Width CV 13.2 % (11.6-14.6); RBC Distribution Width SD 44.7 fl (35.1-43.9); Red Blood Count 5.03 M/mm3 (4.2-5.4); White Blood Count 6.1 K/mm3 (4.4-11.0)
[2025-07-29 16:34] LABS: AST(SGOT) 20 U/L (<=31); Alanine Aminotransfer ALT/SGPT 16 U/L (<=34); Albumin, Serum 4.6 g/dL (3.4-4.8); Alkaline Phosphatase 90 U/L (35-104); Anion Gap 16 (5-15); BUN 13 mg/dL (4-19); BUN/Creat Ratio 16.2 RATIO (10-20); Calcium,Total 9.7 mg/dL (7.6-11.0); Carbon Dioxide 20.9 mmol/L (21.0-32.0); Chloride 103 mmol/L (98-108); Cholesterol 185 mg/dL (<=200); Globulin 3.0 g/dL (2.2-4.2); Glucose 83 mg/dL (70-99); Low Density Lipoprotein Calc. 100 mg/dL; Potassium 4.1 mmol/L (3.3-5.1); Triglycerides 72 mg/dL; Very Low Density Lipoprotein 14 mg/dL (5-40); Vitamin D,25 Hydroxy 24.0 ng/mL (30-100); cholesterol:hdl ratio screen 2.62
== END | disposition home or self-care (01) ==
PROVIDERS: PCP Family Medicine; Referring Provider Family Medicine; Visit Provider Family Medicine
DX: M79.645 Pain in left finger(s) (principal); M06.9 Rheumatoid arthritis, unspecified; Z13.220 Encounter for screening for lipoid disorders
CPT/HCPCS: 36415; 73140; 80053; 80061; 82306; 85027

== ENCOUNTER → 2025-09-02 | Outpatient (CLI) | payer MEDICARE, OTHER, SELFPAY ==
--- NOTE | 2025-09-02 07:58 | BI_ITS ---
EXAM: BI/SCRN MAMM (CAD)W/RACHAEL BILAT
--- NOTE | 2025-09-02 08:05 | BD_ITS ---
PROCEDURE: BD/Dexa Bone Density Study
== END | disposition home or self-care (01) ==
LOC: OPBD 07:56
PROVIDERS: PCP Family Medicine; Referring Provider Family Medicine; Visit Provider Family Medicine
DX: Z12.31 Encounter for screening mammogram for malignant neoplasm of breast (principal); Z78.0 Asymptomatic menopausal state; Z91.89 Other specified personal risk factors, not elsewhere classified
CPT/HCPCS: 77063; 77067; 77080